=== PATIENT | male | born 1960 | race Two or more races ===

== ENCOUNTER 2023-03-15 12:19 | Emergency (ER) | payer OTHER ==
[~2023-03-15] VITALS: Ht 170.2 cm; Wt 127.3 kg
[2023-03-15 13:49] VITALS: BP 143/92
[2023-03-15] MEDS ORDERED: IBUP800T26 PO ×3 (14:28→14:34)
[2023-03-15] MEDS ORDERED: CEPH-510 PO ×3 (14:28→14:34)
== END 2023-03-15 14:35 | disposition home or self-care (01) ==
LOC: ER 12:19
DX: L60.0 Ingrowing nail (principal); B99.9 Unspecified infectious disease